=== PATIENT | female | born 1940 | race Caucasian/White ===

== ENCOUNTER → 2017-07-21 | Day surgery (SDC) | payer MEDICARE, OTHER ==
[~2017-07-21] MED LIST: AMLO5TAB2 PO; ASPI-147 PO; ATOR20TA15 PO; HYDR12.56 PO; LIDOCAINE HCL 1% 30 ML VIAL NERV BLOCK ONE; MEPERIDINE HCL 25 MG/ML VIAL IV ONE; PROPOFOL 200 MG/20 ML AMP IV ONE; SODIUM CHLORIDE 0.9% 10 ML VIAL ONE; SYNT88TA PO; methylPREDNISolone ACETATE 80 MG/ML VIAL ONE
--- NOTE | 2017-07-21 10:41 | M6 ---
cc: Charles Modi MD DATE: 07/21/2017 PROCEDURE: Fluoroscopically guided L5-S1 interlaminar epidural steroid injection. History and physical was completed and signed. Consent was signed. Procedure site was marked. Medications were listed and reconciled. Pain score was recorded. Allergies were noted. Time out was taken. Fluoroscopy time was recorded where applicable. Sedation was administered or directed by Dr. Modi. The patient was given oxygen. The patient was monitored by a registered nurse. Total procedure time was greater than 15 minutes. PROCEDURE NOTE: IV was started. Blood pressure cuff pulse oximeter and EKG were applied. The patient was placed in the prone position on a Hiren table sedated with small amounts of propofol titrated to effect. Vital signs were monitored and remained stable throughout the procedure. The lumbar area was prepped with alcohol and 10% Betadine solution and draped with sterile drapes. Fluoroscopy was used to visualize the L5-S1 intralaminar space. The skin was infiltrated with 1% Xylocaine using a 27-gauge needle. Then, a 3-1/2 inch 18 gauge Wiseman needle was advanced using fluoroscopic guidance and the loss of resistance technique into the epidural space at L5-S1 slightly to the left of the midline. There was negative aspiration for blood or any other type of fluid and at that location, the patient was given 10 mL of 0.5% Xylocaine and 80 mg of Depo-Medrol. Following the procedure, the patient was taken to the recovery room with stable vital signs and neurologically intact. MD ARASH Plummer/GABE , 10:26 AM , 10:40 AM
== END | disposition home or self-care (01) ==
LOC: PHSDC 08:34
PROVIDERS: ATTEND Pain Medicine Interventional Pain Medicine
DX: M54.16 Radiculopathy, lumbar region (principal)
CPT/HCPCS: 62323; 99152; J1040; J2175

== ENCOUNTER → 2017-08-03 | Day surgery (SDC) | payer MEDICARE, OTHER ==
[~2017-08-03] MED LIST changes: -MEPERIDINE HCL 25 MG/ML VIAL IV ONE; +TRIAMCINOLONE ACETONIDE 40 MG/ML VIAL NERV BLOCK ONE
--- NOTE | 2017-08-03 09:55 | M6 ---
cc: Charles Modi MD DATE: 08/03/2017 PROCEDURE: Fluoroscopically guided L5-S1 interlaminar epidural steroid injection. History and physical was completed and signed. Consent was signed. Procedure site was marked. Medications were listed and reconciled. Pain score was recorded. Allergies were noted. Time out was taken. Fluoroscopy time was recorded where applicable. Sedation was administered or directed by Dr. Modi. The patient was given oxygen. The patient was monitored by a registered nurse. Total procedure time was greater than 15 minutes. PROCEDURE NOTE: IV was started. Blood pressure cuff pulse oximeter and EKG were applied. The patient was placed in the prone position on a Hiren table, sedated with small amounts of propofol titrated to effect. Vital signs were monitored and remained stable throughout the procedure. Lumbar area was prepped with alcohol and 10% Betadine solution and draped with sterile drapes. Fluoroscopy was used to visualize the L5-S1 interlaminar space. The skin was infiltrated with 1% Xylocaine using a 27-gauge needle. Then, a inch 18 gauge Wiseman needle was advanced using fluoroscopic guidance and the loss of resistance technique into the epidural space at L5-S1, slightly to the left of the midline. There was negative aspiration for blood or any other type of fluid and the patient was given 10 mL of 0.5% Xylocaine and 80 mg of Depo-Medrol. Following this, the patient was taken to the recovery room with stable vital signs neurologically intact. Charles Modi MD WRM/GABE , 09:47 AM , 09:55 AM
== END | disposition home or self-care (01) ==
LOC: PHSDC 07:31
PROVIDERS: ATTEND Pain Medicine Interventional Pain Medicine
DX: M54.5 Low back pain (principal)
CPT/HCPCS: 62323; 99152; J1040; J3301

== ENCOUNTER → 2017-09-08 | Day surgery (SDC) | payer MEDICARE, OTHER ==
[~2017-09-08] MED LIST changes: +DICL75TA PO; +IOHEXOL 180 MG/ML 20 ML VIAL (for RAD DIAG) EPIDURAL ONE; +LIDOCAINE HCL 1% 30 ML VIAL INFIL ONE; -LIDOCAINE HCL 1% 30 ML VIAL NERV BLOCK ONE; +MIDAZOLAM HCL 2 MG/2 ML VIAL IV ONE; +TRAM50TA PO; +TRIAMCINOLONE ACETONIDE 40 MG/ML VIAL I-ARTICULR ONE; -TRIAMCINOLONE ACETONIDE 40 MG/ML VIAL NERV BLOCK ONE
--- NOTE | 2017-09-08 08:52 | M6 ---
cc: Charles Modi MD, James E MD Martin, Robert DATE: 09/08/2017 PROCEDURE PERFORMED: Fluoroscopically-guided left S1 transforaminal nerve root injection, local anesthetic and steroid, PREPROCEDURE NOTE: Ms. Jimenez has left lower extremity pain. She has pain which extends from her buttocks down her entire leg into her toes. I have performed 2 fluoroscopically-guided left L5-S1 interlaminar epidural steroid injections and she has obtained only modest relief of her symptoms. Today, I am performing a left S1 selective nerve root injection. If the patient does not obtain significant relief, I am recommending neurosurgical consultation and am taking the liberty to refer her to Dr. Guille Griffin. 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 History and physical was completed and signed. Consent was signed. Procedure site was marked. Medications were listed and reconciled. Pain score was recorded. Allergies were noted. Time out was taken. Fluoroscopy time was recorded where applicable. Sedation was administered or directed by Dr. Modi. The patient was given oxygen. The patient was monitored by a registered nurse. Total procedure time was greater than 15 minutes. Operative site was marked. Medications were greater than 15 minutes. IV was started. Blood pressure cuff, pulse oximeter and EKG were applied. The patient was placed in the prone position on a Hiren table, sedated with small amounts of Versed and propofol titrated to effect. Vital signs were monitored and remained stable throughout the procedure. Lumbar area was prepped with alcohol and 10% Betadine solution and draped with sterile drapes. Fluoroscopy was used to visualize the left S1 neural foramen. A 3.5-inch, 22-gauge Chiba needle was advanced using fluoroscopic guidance through the foramen. Omnipaque dye was injected and seen to spread distally along the S1 nerve root. It spread cephalad for a very short distance and then there was a sudden demarcated stop of the dye at the L5 level and no spread of dye in a more cephalad direction. At this point, the patient was given 3 mL of 1% Xylocaine with 40 mg of Depo-Medrol, 40 mg of Kenalog directly on the left S1 nerve root and she was taken to the recovery room with stable vital signs and neurologically intact. W. MD ARASH Mckenna/STACEY , 08:36 AM , 08:51 AM
--- NOTE | 2017-09-08 08:56 | M6 ---
cc: Charles Modi MD, James E MD Martin, Robert DATE: 09/08/2017 PROCEDURE PERFORMED: Epidurogram. Fluoroscopy images were saved for the patient's chart. PREPROCEDURE NOTE: Ms. Jimenez has left lower extremity pain. She has an MRI showing a left-sided bulging disk at L5-S1 with severe left foraminal stenosis. She is not improved with 2 left L5-S1 interlaminar epidural steroid injections. We are performing a left S1 transforaminal injection of today. Omnipaque dye as being injected to determine if there is obstruction of the medication. DETAILS OF PROCEDURE: Under fluoroscopy, a 3.5-inch, 22-gauge Chiba needle was placed through the left S1 neural foramen, 5 mL of Omnipaque dye was injected and seen to spread in distal fashion along the S1 nerve root. The dye spread cephalad a very short distance up to L5 and then there was a sudden clearly demarcated obstruction with no flow of dye in a cephalad direction past L5. IMPRESSION: Clear obstruction of the injected medication. Probable significant stenosis, left lateral recess. Charles Modi MD WRM/KD , 08:39 AM , 08:54 AM
--- NOTE | 2017-09-08 11:40 | RADRPT ---
EXAM DATE: 09/08/2017 11:16 AM EDT AGE/SEX: 76 years / Female INDICATIONS: L5/S1 injection with pain management. CLINICAL DATA: This is the patient's initial encounter. Patient reports that signs and symptoms have been present for 1 day and indicates a pain score of Nonresponsive. MEDICAL/SURGICAL HISTORY: None. None. COMPARISON: No prior exams available for comparison. FINDINGS: Epidural contrast is seen at left L5-S1 nerve root. CONCLUSION: Epidural contrast as above Electronically signed by: Salvador Alarcon MD 09/08/2017 11:39 AM EDT
== END | disposition home or self-care (01) ==
LOC: PHSDC 06:30
PROVIDERS: ATTEND Pain Medicine Interventional Pain Medicine
DX: M79.662 Pain in left lower leg (principal); M54.17 Radiculopathy, lumbosacral region
CPT/HCPCS: 62323; 72020; 99152; J1040; J2250; J3301; Q9965